=== PATIENT | female | born 1930 | race Caucasian/White ===

== ENCOUNTER → 2020-05-30 | Outpatient (CLI) | payer OTHER ==
[~2020-05-30] MED LIST: CALCIUM 600 +1 EAC1 PO; FISH OIL 1,0001 EAC5 PO; GLUCOPHAGE500 MG PO; GLUMETZA500 PO; LISINOPRIL10 MG PO; MOTION RELIEF25 MG; NORCO 5-325 TA1 EACH PO; NORVASC 2.5 MG2.5 M1 PO; NORVASC 5 MG TAB5 MG PO; PAIN & FEVER325 MG; SIMVASTATIN20 MG PO
== END ==
LOC: LAB 10:57
PROVIDERS: ATTEND Family Medicine
DX: Z20.822 Contact with and (suspected) exposure to COVID-19 (principal); R19.7 Diarrhea, unspecified